=== PATIENT | male | born 1985 | race Caucasian/White ===

== ENCOUNTER 2021-06-12 23:41 | Emergency (ER) | payer SELFPAY ==
[~2021-06-12] VITALS: Ht 170.2 cm; Wt 72.6 kg
[2021-06-12 23:50] VITALS: BP 132/78
--- NOTE | 2021-06-12 23:50 | NUR ---
35 y/[facility] for prebook, pd requesting medical clearance at this time. pt denies pain at this time, sob, cough, cp, sore throat or fevers. lungs bl clear, resp even and unlabored. heart rate even and regular. pmh: denies nka med: denies
[2021-06-13] MEDS ORDERED: QUEtiapine FUMARATE 100 MG TAB PO STA (00:33)
[2021-06-13] MEDS ORDERED: QUET300T1 PO (00:38)
[2021-06-13 00:54] VITALS: BP 132/78
--- NOTE | 2021-06-13 00:55 | NUR ---
Patient discharged with v/s stable. Written and verbal after care instructions given and explained. Patient alert, oriented and verbalized understanding of instructions. Police with in custody. All questions addressed prior to discharge. ID band removed. Patient advised to follow up with PMD. Rx of quetiapine (script) given. Patient educated on indication of medication including possible reaction and side effects. Opportunity to ask questions provided and answered.
== END 2021-06-13 00:54 ==
LOC: MED 23:41
DX: F34.9 Persistent mood [affective] disorder, unspecified (principal); Z02.89 Encounter for other administrative examinations
CPT/HCPCS: 99283